=== PATIENT | female | born 2000 | race African-American/Black ===

== ENCOUNTER 2024-01-11 05:12 | Emergency (ER) | payer MEDICAID, OTHER ==
[~2024-01-11] VITALS: Ht 170.2 cm; Wt 73.0 kg
[2024-01-11 05:27] VITALS: BP 137/75; PULSE 92; RESP 18; O2SAT 99
[2024-01-11] MEDS ORDERED: TOPUD PO (06:08)
[2024-01-11] MEDS ORDERED: AMOX1TAB16 PO (06:08)
[2024-01-11 06:15] VITALS: TEMP 98.4
[2024-01-11] MEDS: ACETAMINOPHEN 325MG TABLET PO ONE (06:15)
== END 2024-01-11 07:17 | disposition home or self-care (01) ==
LOC: ER 05:12
DX: J02.9 Acute pharyngitis, unspecified (principal)
CPT/HCPCS: 99283